=== PATIENT | male | born 1975 | race Caucasian/White ===

== ENCOUNTER 2016-04-21 03:12 | Emergency (ER) | payer MEDICAID, OTHER ==
[~2016-04-21] VITALS: Ht 180.3 cm; Wt 108.9 kg
[2016-04-21] MEDS ORDERED: SODIUM CHLORIDE 0.9% 1,000 ML IVB ONE (03:41)
[2016-04-21] MEDS ORDERED: ASPirin 81 mg TAB PO ONE (03:45)
[2016-04-21] MEDS ORDERED: ONDANSETRON HCL 4 MG/2 ML VIAL IV ONE (03:45)
[2016-04-21] MEDS ORDERED: FAMOTIDINE (10MG/ML) 2ML VL IV ONE (03:45)
[2016-04-21] MEDS ORDERED: MORPHINE SULFATE 4 MG/ML SYRG IV ONE (03:45)
[2016-04-21] MEDS ORDERED: LORazepam 2MG/ML-1ML VIAL IV ONE (03:45)
[2016-04-21 03:51] LABS: Basophils # (auto) 0.1 uL; Basophils % (auto) 0.6 % (0.0-2.0); Eosinophils # (auto) 0.2 uL; Eosinophils % (auto) 2.4 % (0.0-7.0); Hematocrit 46.5 % (41.0-53.0); Hemoglobin 15.5 g/dL (13.5-17.5); Lymphocytes # (auto) 2.8 uL; Lymphocytes % (auto) 27.7 % (10.0-50.0); Mean Corpuscular Hemoglobin 29.4 pg (28.0-32.0); Mean Corpuscular Hgb Conc. 33.3 g/dL (32.0-36.0); Mean Corpuscular Volume 88.2 fL (80.0-100.0); Monocytes # (auto) 0.6 uL; Monocytes % (auto) 6.5 % (0.0-12.0); Neutrophils # (auto) 6.3 uL; Neutrophils % (auto) 62.8 % (37.0-80.0); Platelet Count (auto) 324 10^3/uL (140-450); Red Cell Distribution Width 12.7 % (11.6-16.0)
[2016-04-21 04:07] LABS: Partial Thromboplastin Time 30.9 sec (22.64-33.71); Prothrombin Time 10.3 sec (9.37-12.3)
[2016-04-21 04:12] LABS: Albumin 3.4 g/dL (3.4-5.0); Calcium 7.8 mg/dL (8.5-10.1); Potassium 4.2 mmol/L (3.5-5.1)
[2016-04-21 04:14] LABS: Bilirubin, Total 0.2 mg/dL (0.2-1.0); Total Protein 6.6 g/dL (6.4-8.2)
[2016-04-21 04:31] LABS: B-Type Natriuretic Peptide 8.43 pg/mL (0-100)
[2016-04-21 04:34] LABS: Temperature: 21.9 C (20.0-25.0)
[2016-04-21 05:01] VITALS: BP 127/78
== END 2016-04-21 05:02 | disposition home or self-care (01) ==
LOC: EDBD 03:12 → ER 03:12
DX: R07.89 Other chest pain (principal); M79.602 Pain in left arm; E03.9 Hypothyroidism, unspecified
CPT/HCPCS: 36415; 71010; 80053; 83880; 84443; 84484; 85025; 85049; 85610; 85730; 93005; 96361; 96374; 96375; 99285; J2060; J2270; J2405; J3490